=== PATIENT | male | born 1965 | race Two or more races ===

== ENCOUNTER 2024-05-16 14:30 | Outpatient (RCR) | payer MEDICAID, SELFPAY ==
--- NOTE | 2024-05-01 13:10 | PTNOTE_ITS ---
PT OP Initial Eval Patient Information Outpatient Physical Therapy Treatment Date: 05/01/24 Visit Reasons: RIGHT LEG ABSENCE Medical Diagnosis: Z89.512 Treatment Dx #1: Difficulty Walking Treatment Dx #2: Generalized Weakness Start of Care: 05/01/24 Date of Onset: 2021 Smoking Status Smoking Status: Never smoker Initial Assessment Subjective: Pt is a 58 y/o male reports of non-ambulatory ~ 2 years ago after his left leg amputation and CVA. Pt mention he finally received his prothesis and will like to start working towards being able to walk. Pt has limitation with walking, standing, chores, self care, balance, and performing recreational activities. Objective: Left LE AROM: all motions are WFL Left LE MMTs: grossly 3+/5 Right LE AROM: all motions are WFL Right LE MMTs: grossly 3+/5 BUE AROM: all motions are WFL BUE MMTs: grossly 3+/5 Assessment: Pt demonstrate general weakness, decondition, and decrease mobility s/p amputation leading to difficulty with ADLs. Pt will benefit from physical therapy to work on strength, mobility, and ambulation. Short Term and Transportation Sales Consultant Goals 1) Increase BLE AROM WNL in 12 wks to be able to perform chores 2) Increase core strength WFL in 12 wks to be able to perform recreational activities 3) Increase BLE MMTs grossly to 4-/5 in 12 wks to be able to walk with AD 4) Increase BUE MMTs grossly to 4/5 in 12 wks to be able to transfer independently 5) Indep with HEP Treatment Plan 1) Manual Therapy 2) Therapeutic Activities 3) Therapeutic Exercises 4) Balance Training 5) Gait Training Frequency and Duration: 2 x wk for 12 wks Certification Dates: 05/01/24 to 07/30/24 Procedure Charges OP PT Eval Mod Complex 30 minutes: Yes
--- NOTE | 2024-05-07 13:37 | PT.ODAYNRPT ---
PT Outpatient Daily Note OP Daily Note Outpatient Physical Therapy Treatment Date: 05/07/24 Visit Reasons: RIGHT LEG ABSENCE Subjective: Pt last put on his prosthesis ~ 1 week ago. Objective: Please see flow chart for list of ther ex performed Assessment: fatigue post PT session. Pt had difficulty balancing with sit-stand and will need further practice Plan: Continue with PT Length of Time (minutes) of Treatment: 30 Minutes Procedure Charges Therapeutic Exercise 30 minutes: Yes
--- NOTE | 2024-05-09 12:02 | PT.ODAYNRPT ---
PT Outpatient Daily Note OP Daily Note Outpatient Physical Therapy Treatment Date: 05/09/24 Visit Reasons: RIGHT LEG ABSENCE Subjective: Pt was very sore after last session. Pt had a good night sleep but denies of exercises being too difficult Objective: Please see flow chart for list of ther ex perfromed Assessment: improved with sit to stand form and able to stand longer with less support from therapist. Pt advised to continue to stand as HEP at home to improved standing balance Plan: Continue with PT Length of Time (minutes) of Treatment: 30 Minutes Procedure Charges Therapeutic Exercise 30 minutes: Yes
--- NOTE | 2024-05-14 15:28 | PT.ODAYNRPT ---
PT Outpatient Daily Note OP Daily Note Outpatient Physical Therapy Treatment Date: 05/14/24 Visit Reasons: RIGHT LEG ABSENCE Subjective: Pt very tired after last session. Pt mention he's been sore every time after therapy Objective: Please see flow chart for list of ther ex performed Assessment: progressing with standing tolerance. Pt fatigue post sit-stand and sci fit indicating decondition. Plan: Continue with PT Length of Time (minutes) of Treatment: 30 Minutes Procedure Charges Therapeutic Exercise 30 minutes: Yes
--- NOTE | 2024-05-16 15:32 | PT.ODAYNRPT ---
PT Outpatient Daily Note OP Daily Note Outpatient Physical Therapy Treatment Date: 05/16/24 Visit Reasons: RIGHT LEG ABSENCE Subjective: Pt reports he is feeling more tired than usual. Objective: Please see flow sheet fot ther ex list. Assessment: Pt performed 4x STS with Mod A, relies heavy on [employer] poor push off with R LE. Plan: Continue with POC. Length of Time (minutes) of Treatment: 30 Minutes Procedure Charges Therapeutic Exercise 30 minutes: Yes
== END 2024-05-28 23:59 | disposition home or self-care (01) ==
LOC: CPTX 14:30
PROVIDERS: PCP Physician Assistant; Referring Provider Physician Assistant; Visit Provider Physician Assistant
DX: R26.2 Difficulty in walking, not elsewhere classified (principal); R53.1 Weakness; R26.89 Other abnormalities of gait and mobility; Z89.512 Acquired absence of left leg below knee
CPT/HCPCS: 97110; 97162

== ENCOUNTER 2024-05-20 11:43 | Emergency (ER) | payer MEDICAID, SELFPAY ==
[2024-05-20 12:22] VITALS: BP 130/70; PULSE 66; RESP 16; TEMP 36.4; O2SAT 95; BMI 31.9
--- NOTE | 2024-05-20 12:28 | EDNOTE_ITS ---
ED Male Genitalurinary RME/HPI General Chief complaint: Urogenital-Male Stated complaint: NEED NEW CATHETER BAG Time Seen by Provider: 05/20/24 12:10 Arrival date/time: 05/20/24 11:43 58-year-old male with indwelling Joseph catheter presents the emergency department today stating that his Joseph catheter is leaking patient denies any other concerns Limitations: no limitations Related Data Home Medications ?Medication ?Instructions ?Recorded ?Confirmed atorvastatin 40 mg tablet 40 mg PO HS 01/27/24 01/27/24 bumetanide 1 mg tablet 1 mg PO BID 01/27/24 01/27/24 calcitriol 0.25 mcg capsule 0.25 mcg PO MWF 01/27/24 01/27/24 carvedilol 25 mg tablet 25 mg BID 01/27/24 01/27/24 clopidogrel 75 mg tablet 75 mg PO QPM 01/27/24 01/28/24 doxazosin 4 mg tablet 4 mg PO 1XD 01/27/24 01/27/24 finasteride 5 mg tablet 5 mg PO QDAY 01/27/24 01/27/24 oxybutynin chloride 5 mg 5 mg PO QDAY 01/27/24 01/27/24 tablet,extended release 24 hr aspirin 81 mg tablet,delayed 81 mg PO QDAY 01/28/24 01/28/24 release hydrochlorothiazide 25 mg tablet 25 mg PO QAM diuretic 01/28/24 01/28/24 losartan 25 mg tablet 25 mg PO QDAY 01/28/24 01/28/24 pantoprazole 40 mg tablet,delayed 40 mg PO QDAY 01/28/24 01/28/24 release insulin glargine 100 unit/mL (3 30 unit subcut HS 01/29/24 01/29/24 mL) subcutaneous pen (Lantus Solostar U-100 Insulin) insulin lispro 100 unit/mL 10 unit subcut QID 01/29/24 01/29/24 subcutaneous pen Previous Rx's ?Medication ?Instructions ?Recorded metformin 500 mg tablet 500 mg PO BIDWMEAL #30 tabs 01/30/24 nifedipine 30 mg tablet,extended 30 mg PO QDAY #30 tabs 01/31/24 release Allergies Allergy/AdvReac Type Severity Reaction Status Date / Time No Known Allergies Allergy Verified 05/20/24 11:44 Review of Systems Review of Systems Systems Reviewed: All systems reviewed, normal except as documented Constitutional Constitutional: Reports system reviewed and no additional complaints, except as documented, Denies fever(s) and Denies headache(s) Eyes Eyes: Reports system reviewed and no additional complaints, except as documented and Denies blurry vision ENT Ears, Nose, Mouth, and Throat: Reports system reviewed and no additional complaints, except as documented, Denies headache(s), Denies nasal congestion and Denies nasal discharge Cardiovascular Cardiovascular: Reports system reviewed and no additional complaints, except as documented, Denies chest pain and Denies dyspnea Respiratory Respiratory: Reports system reviewed and no additional complaints, except as documented, Denies chest congestion, Denies cough and Denies dyspnea Gastrointestinal Gastrointestinal: Reports system reviewed and no additional complaints, except as documented and Denies abdominal pain Genitourinary Genitourinary: Reports system reviewed and no additional complaints, except as documented and Reports other (Joseph catheter leaking) Integumentary/Breasts Skin/Breast: Reports system reviewed and no additional complaints, except as documented and Denies rash Neurologic Neurologic: Reports system reviewed and no additional complaints, except as documented, Reports as per HPI and Denies headache(s) Past Medical History Past Medical History CARDIAC: Positive Hypertension; Negative Congestive Heart Failure RESPIRATORY: Negative Chronic Obstructive Pulmonary Disease (COPD) GENITOURINARY: Positive Benign Prostatic Hyperplasia (chronic joseph); Negative Renal Disease ENDOCRINE: Positive Endocrine Disorders and Diabetes Mellitus Type 2; Negative Diabetes Mellitus Type 1 Surgical History SURGICAL: Positive Amputation Social History SMOKING STATUS: Never smoker ED Exam General Limitations: Present no limitations General appearance: Present alert and in no apparent distress Head Head exam: Present atraumatic, normocephalic and normal inspection Eye Eye exam: Present normal appearance, PERRL and EOMI; Absent conjunctival injection ENT ENT exam: Present normal exam, normal oropharynx and mucous membranes moist Neck Neck exam: Present normal inspection, full ROM and trachea midline Chest Chest inspection: Present normal inspection and symmetric chest wall rise Respiratory Respiratory exam: Present normal lung sounds bilaterally; Absent respiratory distress Cardiovascular Cardiovascular exam: Present regular rate, normal rhythm and normal heart sounds Abdominal Exam Abdominal exam: Present soft and normal bowel sounds; Absent distention, tenderness, guarding, rebound or rigidity Extremities Exam Extremities exam: Present normal inspection and full ROM Back Exam Back exam: Present normal inspection and full ROM Neurological Exam Neurological exam: Present alert, oriented X3 and CN II-XII intact Psychiatric Psychiatric exam: Present normal affect and normal mood Skin Skin exam: Present warm, dry, intact and normal color Course Quality Measures none Vital Signs Vital signs: Vital Signs Temperature 97.5 F 05/20/24 12:22 Pulse Rate 66 05/20/24 12:22 Respiratory Rate 16 05/20/24 12:22 Blood Pressure 130/70 05/20/24 12:22 Pulse Oximetry (%) 95 05/20/24 12:22 Oxygen Delivery Method Room Air 05/20/24 12:22 O2 saturation 95% room air within normal limits Urogenital - Male MDM Narrative MDM Narrative:: 58-year-old male with indwelling Joseph catheter presents the emergency department today stating that his Joseph catheter is leaking patient denies any other concerns On exam patient has Joseph catheter in place Patient's Joseph bag is leaking bag is replaced and patient discharged home Patient discharged home in no distress to follow-up with primary care doctor in the next 24 to 48 hours and for any worsening symptoms to return to the ER immediately Patient data External records reviewed:: [facility] previous records Clinical information provided by:: patient Social determinants that could affect healthcare access:: none Patient has the following chronic illnesses:: See history How is presenting disease/condition affected by chronic disease/condition?: caused by Evaluation data The following diagnostics were reviewed and interpreted by me:: other (specify) (N/A) Lab and/or radiology exams considered but not ordered:: Not indicated Interpretation Summary: N/A Medications / Prescriptions Medications or Prescriptions considered but not ordered:: No meds Medication administrations:: No meds Consultations Consultation(s) initiated? (list below): No Diagnosis Urogenital Male Differential Diagnosis: urinary tract infection, acute retention of urine and other (ChronicFoley catheter) Most likely diagnosis given after review of the tests above:: Joseph catheter problem Admission Indicated Admission indicated?: not indicated Admission Request Was there a request for admission?: No Disposition Plan Disposition Plan: Discharge Discharge Attestation Discharge Attestation: The patient and all family members were given an opportunity to ask questions and understood the discharge instructions. Discharge instructions specifically effects, indications for sooner follow up or return to the emergency department, and the expected course of current diagnosis. Patient condition: Stable Discharge Plan Plan Patient Disposition: HOME (Self Care) Disposition Comment: Stable Prescriptions/Referrals Prescriptions/Med Rec: No Action carvedilol 25 mg tablet 25 mg BID Patient Comments: TAKE ONE TABLET BY MOUTH TWICE DAILY WITH FOOD FOR BLOOD PRESSURE calcitriol 0.25 mcg capsule 0.25 mcg PO MWF Patient Comments: TAKE ONE CAPSULE BY MOUTH EVERY OTHER DAY doxazosin 4 mg tablet 4 mg PO 1XD Patient Comments: TAKE ONE TABLET BY MOUTH EVERY DAY FOR BLOOD PRESSURE bumetanide 1 mg tablet 1 mg PO BID Patient Comments: TAKE ONE TABLET BY MOUTH TWICE DAILY AT EIGHT IN THE MORNING AND 2 p.m in THE afternoon finasteride 5 mg tablet 5 mg PO QDAY Patient Comments: TAKE ONE TABLET BY MOUTH EVERY DAY FOR PROSTATE atorvastatin 40 mg tablet 40 mg PO HS Patient Comments: TAKE ONE TABLET BY MOUTH AT BEDTIME FOR CHOLESTEROL clopidogrel 75 mg tablet 75 mg PO QPM Patient Comments: TAKE ONE TABLET BY MOUTH EVERY EVENING FOR THE HEART oxybutynin chloride 5 mg tablet extended release 24hr 5 mg PO QDAY Patient Comments: TAKE ONE TABLET BY MOUTH EVERY DAY FOR OVERACTIVE BLADDER aspirin 81 mg tablet,delayed release (DR/EC) 81 mg PO QDAY Patient Comments: TAKE ONE TABLET BY MOUTH EVERY DAY FOR THE HEART FOR CIRCULATION pantoprazole 40 mg tablet,delayed release (DR/EC) 40 mg PO QDAY Patient Comments: TAKE ONE TABLET BY MOUTH EVERY DAY HEARTBURN hydrochlorothiazide 25 mg tablet 25 mg PO QAM Patient Comments: TAKE ONE TABLET BY MOUTH EVERY MORNING A DIURETIC losartan 25 mg tablet 25 mg PO QDAY insulin lispro 100 unit/mL Insulin Pen 10 unit SUBCUT QID Rx Instructions: 10-11 units insulin glargine [Lantus Solostar U-100 Insulin] 100 unit/mL (3 mL) Insulin Pen 30 unit SUBCUT HS metformin 500 mg tablet 500 mg PO BIDWMEAL Qty: 30 0RF nifedipine 30 mg tablet extended release 30 mg PO QDAY Qty: 30 0RF Problem List Clinical Impression: Joseph catheter problem Patient/Caregiver Discharge Instructions Additional Instructions: Please follow up with your primary care doctor in the next 24-48hrs for any worsening symptoms return here immediately Print Language: Yakut Stand Alone Forms: [employer] Award Info., Patient Portal Info Letter PA/PSYCHOLOGICAL ANTHROPOLOGIST Supervising Physician PA/PSYCHOLOGICAL ANTHROPOLOGIST Supervising Physician: Dr Miguel
== END 2024-05-20 12:31 | disposition home or self-care (01) ==
LOC: SERX 12:42
PROVIDERS: Emergency Provider Emergency Medicine; PCP Physician Assistant
DX: T83.018A Breakdown (mechanical) of other urinary catheter, initial encounter (principal); Y84.6 Urinary catheterization as the cause of abnormal reaction of the patient, or of later complication, without mention of misadventure at the time of the procedure
CPT/HCPCS: 99282

== ENCOUNTER 2024-06-24 13:30 | Outpatient (RCR) | payer MEDICAID, SELFPAY ==
--- NOTE | 2024-06-05 13:29 | PT.ODAYNRPT ---
PT Outpatient Daily Note OP Daily Note Outpatient Physical Therapy Treatment Date: 06/05/24 Visit Reasons: Right leg Abscence Subjective: No new complaints or concerns. Objective: Please see flow sheet for ther ex list. Assessment: Pt stood with Min/mod A first time and CGA second attempt. Pt stood for 30 seconds each time, verbal cues to correct standing posture, pt complied. Plan: Continue with POC. Length of Time (minutes) of Treatment: 30 Minutes Procedure Charges Therapeutic Exercise 30 minutes: Yes
--- NOTE | 2024-06-10 12:59 | PT.ODAYNRPT ---
PT Outpatient Daily Note OP Daily Note Outpatient Physical Therapy Treatment Date: 06/10/24 Visit Reasons: Right leg Abscence Subjective: Pt's been a little more tired than usual. Overall patient feels good. Objective: Please see flow chart for list of ther ex perfomed Assessment: fatigue PT session. Pt encouraged to continue exercises at home to help with conditioning. Plan: Continue with PT Length of Time (minutes) of Treatment: 30 Minutes Procedure Charges Therapeutic Exercise 30 minutes: Yes
--- NOTE | 2024-06-20 13:55 | PT.ODAYNRPT ---
PT Outpatient Daily Note OP Daily Note Outpatient Physical Therapy Treatment Date: 06/20/24 Visit Reasons: Right leg Abscence Subjective: No new complaints. Objective: Please see flow sheet for ther ex list. Assessment: Pt demonstrates poor standing tolerance, unable to stand fully erect. Plan: Continue with pOC. Length of Time (minutes) of Treatment: 30 Minutes Procedure Charges Therapeutic Exercise 30 minutes: Yes
--- NOTE | 2024-06-24 14:04 | PT.ODAYNRPT ---
PT Outpatient Daily Note OP Daily Note Outpatient Physical Therapy Treatment Date: 06/24/24 Visit Reasons: Right leg Abscence Subjective: Pt came in wearing prosthetic leg. No new complaints or concerns. Objective: Please see flow sheet for ther ex list. Assessment: Pt instructed on weight shifting in standing, pt fatigues but able to tolerate ~60 seconds. Plan: Continue with pOC. Length of Time (minutes) of Treatment: 30 Minutes Procedure Charges Therapeutic Exercise 30 minutes: Yes
== END 2024-06-28 23:59 | disposition home or self-care (01) ==
LOC: CPTX 13:30
PROVIDERS: PCP Physician Assistant; Referring Provider Physician Assistant; Visit Provider Physician Assistant
DX: R26.2 Difficulty in walking, not elsewhere classified (principal); R53.1 Weakness; R26.89 Other abnormalities of gait and mobility; Z89.512 Acquired absence of left leg below knee; Z86.73 Personal history of transient ischemic attack (TIA), and cerebral infarction without residual deficits
CPT/HCPCS: 97110

== ENCOUNTER 2024-07-04 13:30 | Outpatient (RCR) | payer MEDICAID, SELFPAY ==
--- NOTE | 2024-07-02 14:54 | PT.ODAYNRPT ---
PT Outpatient Daily Note OP Daily Note Outpatient Physical Therapy Treatment Date: 07/02/24 Visit Reasons: RT leg abscence Subjective: Pt's prothesis is getting fixed in [place]. The plastic broke and needed to be repair. Objective: Please see flow chart for list of ther ex perfomed Assessment: demonstrate improved sit to stand transition with less assist from therapist. Unable to attempt gait today since patient's prothesis is being repaired. Plan: Continue with PT Length of Time (minutes) of Treatment: 30 Minutes Procedure Charges Therapeutic Exercise 30 minutes: Yes
--- NOTE | 2024-07-04 14:04 | PT.ODAYNRPT ---
PT Outpatient Daily Note OP Daily Note Outpatient Physical Therapy Treatment Date: 07/04/24 Visit Reasons: RT leg abscence Subjective: Pt reports he is getting a new fitted orthosis, will likely be ready next week. Objective: Please see flow sheet for ther ex list., Assessment: Focus on LE strengthening to work towards pt being able to transfer with less difficulty. Plan: Continue with POC. Length of Time (minutes) of Treatment: 30 Minutes Procedure Charges Therapeutic Exercise 30 minutes: Yes
--- NOTE | 2024-07-10 13:20 | PT.ODS1RPT ---
PT OP Progress/Discharge Note Date of Service: 07/10/24 Progress Note/DC Note Progress Note/Discharge Note: DC Note Patient Information Visit Reasons: RT leg abscence Service Discharge Date: 07/10/24 Status Assessment: Pt has been seen for 11 visits (eval + 10 visits) inconsistently. Pt last treated on 07/04/24. At this time Pt will be d/c from care due to authorization. Pt did not meet set goals in therapy; thank you for your referrals
== END 2024-07-26 23:59 | disposition home or self-care (01) ==
LOC: CPTX 13:30
PROVIDERS: PCP Physician Assistant; Referring Provider Physician Assistant; Visit Provider Physician Assistant
DX: R26.2 Difficulty in walking, not elsewhere classified (principal); R53.1 Weakness; R26.89 Other abnormalities of gait and mobility; Z89.512 Acquired absence of left leg below knee
CPT/HCPCS: 97110

== ENCOUNTER 2024-07-20 12:22 | Emergency (ER) | payer MEDICAID, SELFPAY ==
[2024-07-20 12:51] VITALS: BP 152/70; PULSE 69; RESP 18; TEMP 36.9; O2SAT 98
[2024-07-20 12:52] VITALS: BMI 29.4
--- NOTE | 2024-07-20 13:07 | PD.EDADULT ---
ED General RME/HPI General Chief complaint: General Adult/Misc Complain Stated complaint: MORGAN CATHETER PROBLEM/LEAK/CHANGE Time Seen by Provider: 07/20/24 12:45 Arrival date/time: 07/20/24 12:22 RME / HPI RME / HPI narrative: 59-year-old male patient came in for evaluation regarding Morgan catheter bag malfunction. Patient noticed that the Morgan catheter bag is leaking. And he had no extra bag. Patient is having chronic Morgan catheter, last changed few weeks ago. Denies any complaints in the Morgan catheter. Related Data Home Medications ?Medication ?Instructions ?Recorded ?Confirmed atorvastatin 40 mg tablet 40 mg PO HS 01/27/24 01/27/24 bumetanide 1 mg tablet 1 mg PO BID 01/27/24 01/27/24 calcitriol 0.25 mcg capsule 0.25 mcg PO MWF 01/27/24 01/27/24 carvedilol 25 mg tablet 25 mg BID 01/27/24 01/27/24 clopidogrel 75 mg tablet 75 mg PO QPM 01/27/24 01/28/24 doxazosin 4 mg tablet 4 mg PO 1XD 01/27/24 01/27/24 finasteride 5 mg tablet 5 mg PO QDAY 01/27/24 01/27/24 oxybutynin chloride 5 mg 5 mg PO QDAY 01/27/24 01/27/24 tablet,extended release 24 hr aspirin 81 mg tablet,delayed 81 mg PO QDAY 01/28/24 01/28/24 release hydrochlorothiazide 25 mg tablet 25 mg PO QAM diuretic 01/28/24 01/28/24 losartan 25 mg tablet 25 mg PO QDAY 01/28/24 01/28/24 pantoprazole 40 mg tablet,delayed 40 mg PO QDAY 01/28/24 01/28/24 release insulin glargine 100 unit/mL (3 30 unit subcut HS 01/29/24 01/29/24 mL) subcutaneous pen (Lantus Solostar U-100 Insulin) insulin lispro 100 unit/mL 10 unit subcut QID 01/29/24 01/29/24 subcutaneous pen Previous Rx's ?Medication ?Instructions ?Recorded metformin 500 mg tablet 500 mg PO BIDWMEAL #30 tabs 01/30/24 nifedipine 30 mg tablet,extended 30 mg PO QDAY #30 tabs 01/31/24 release Allergies Allergy/AdvReac Type Severity Reaction Status Date / Time No Known Allergies Allergy Verified 07/20/24 12:23 Review of Systems Review of Systems Narrative Review of Systems: Review of system reviewed and within normal limits except mentioned in HPI ED Exam Narrative Physical exam: VITAL SIGNS: Reviewed. GENERAL APPEARANCE: Alert and interactive, follows commands, no acute distress, HEAD AND FACE: Non-traumatic. ENT: PERRL, pink conjunctivitis, eyelid no trauma, Mucous membrane moist. NECK: Supple, nontender, no nuchal rigidity. CHEST: No tenderness, no crepitus, no paradoxical movement, no retractions. LUNGS: Clear, well ventilated, symmetric, no rales, no wheezing, no ronchi, no stridor, good breath sounds bilaterally. HEART: Regular rate, regular rhythm, no murmur, no gallops. ABDOMEN: Soft, positive bowel sounds, nondistended, no guarding, nontender, no rebound, no masses, RECTAL: Deferred. GENITAL: Morgan catheter intact, Morgan catheter bag with leaking NEUROLOGICAL: Gross motor function intact sensory function intact, Appropriate for age. MUSCULOSKELETAL: low back nontender, full range of motion. EXTREMITIES: Status post below-knee amputation, nontender, full range of motion. SKIN: Color pink, dry, no rash, no lacerations, no abrasions, no contusions. LYMPHATICS: Deferred. Course Quality Measures none Vital Signs Vital signs: Vital Signs Temperature 98.4 F 07/20/24 12:51 Pulse Rate 69 07/20/24 12:51 Respiratory Rate 18 07/20/24 12:51 Blood Pressure 152/70 H 07/20/24 12:51 Pulse Oximetry (%) 98 07/20/24 12:51 Oxygen Delivery Method Room Air 07/20/24 12:51 [facility] Patient data External records reviewed:: None Clinical information provided by:: none Social determinants that could affect healthcare access:: none Patient has the following chronic illnesses:: None How is presenting disease/condition affected by chronic disease/condition?: no chronic disease Evaluation data The following diagnostics were reviewed and interpreted by me:: other (specify) Lab and/or radiology exams considered but not ordered:: None Interpretation Summary: None Medications Medications considered but not ordered:: None Medication administrations:: None Consultations Consultation(s) initiated? (list below): No Diagnosis Differential Diagnosis ED Complaint MDM: Morgan catheter malfunction, Morgan bag malfunction Most likely diagnosis given after review of the tests above:: Morgan bag malfunction Admission Indicated Admission indicated?: not indicated Explain why admission is indicated or not indicated:: None Admission Request Was there a request for admission?: No Disposition Plan Disposition Plan: Discharge Discharge Attestation Discharge Attestation: The patient was given an opportunity to ask questions and understood the discharge instructions. Discharge instructions specifically effects, indications for sooner follow up or return to the emergency department, and the expected course of current diagnosis. Patient condition: Stable Medical Decision Making MDM Narrative MDM Narrative: 59-year-old male patient came in for evaluation regarding Morgan catheter bag malfunction. Patient noticed that the Morgan catheter bag is leaking. And he had no extra bag. Patient is having chronic Morgan catheter, last changed few weeks ago. Denies any complaints in the Morgan catheter. Patient was given a Morgan catheter bag. Patient appears nontoxic and hemodynamically stable. Patient discharged home and instructed to follow-up with primary care provider in 24 to 48 hours. Instructed to return to the emergency department immediately if worsening of symptoms Differential Diagnosis Differential Diagnosis: Morgan catheter malfunction, Morgan bag malfunction Discharge Plan Plan Patient Disposition: HOME (Self Care) Disposition Comment: Stable Prescriptions/Referrals Prescriptions/Med Rec: No Action carvedilol 25 mg tablet 25 mg BID Patient Comments: TAKE ONE TABLET BY MOUTH TWICE DAILY WITH FOOD FOR BLOOD PRESSURE calcitriol 0.25 mcg capsule 0.25 mcg PO MWF Patient Comments: TAKE ONE CAPSULE BY MOUTH EVERY OTHER DAY doxazosin 4 mg tablet 4 mg PO 1XD Patient Comments: TAKE ONE TABLET BY MOUTH EVERY DAY FOR BLOOD PRESSURE bumetanide 1 mg tablet 1 mg PO BID Patient Comments: TAKE ONE TABLET BY MOUTH TWICE DAILY AT EIGHT IN THE MORNING AND 2 p.m in THE afternoon finasteride 5 mg tablet 5 mg PO QDAY Patient Comments: TAKE ONE TABLET BY MOUTH EVERY DAY FOR PROSTATE atorvastatin 40 mg tablet 40 mg PO HS Patient Comments: TAKE ONE TABLET BY MOUTH AT BEDTIME FOR CHOLESTEROL clopidogrel 75 mg tablet 75 mg PO QPM Patient Comments: TAKE ONE TABLET BY MOUTH EVERY EVENING FOR THE HEART oxybutynin chloride 5 mg tablet extended release 24hr 5 mg PO QDAY Patient Comments: TAKE ONE TABLET BY MOUTH EVERY DAY FOR OVERACTIVE BLADDER aspirin 81 mg tablet,delayed release (DR/EC) 81 mg PO QDAY Patient Comments: TAKE ONE TABLET BY MOUTH EVERY DAY FOR THE HEART FOR CIRCULATION pantoprazole 40 mg tablet,delayed release (DR/EC) 40 mg PO QDAY Patient Comments: TAKE ONE TABLET BY MOUTH EVERY DAY HEARTBURN hydrochlorothiazide 25 mg tablet 25 mg PO QAM Patient Comments: TAKE ONE TABLET BY MOUTH EVERY MORNING A DIURETIC losartan 25 mg tablet 25 mg PO QDAY insulin lispro 100 unit/mL Insulin Pen 10 unit SUBCUT QID Rx Instructions: 10-11 units insulin glargine [Lantus Solostar U-100 Insulin] 100 unit/mL (3 mL) Insulin Pen 30 unit SUBCUT HS metformin 500 mg tablet 500 mg PO BIDWMEAL Qty: 30 0RF nifedipine 30 mg tablet extended release 30 mg PO QDAY Qty: 30 0RF Problem List Clinical Impression: Malfunction of Morgan catheter Patient/Caregiver Discharge Instructions Discharge Activity: activity as tolerated Education Materials: ED Morgan Catheter, Care Additional Instructions: Thank you for the opportunity for serving you today. You are stable for discharged . You are advised to: Follow-up with your PCP in 1 to 2 days Return to ED for worsening of symptoms Increase oral fluids Print Language: French Stand Alone Forms: [employer] Award Info., Patient Portal Info Letter
== END 2024-07-20 13:21 | disposition home or self-care (01) ==
LOC: SERX 13:14
PROVIDERS: Emergency Provider Emergency Medicine
DX: T83.091A Other mechanical complication of indwelling urethral catheter, initial encounter (principal); Z89.519 Acquired absence of unspecified leg below knee; Y73.2 Prosthetic and other implants, materials and accessory gastroenterology and urology devices associated with adverse incidents; Y84.6 Urinary catheterization as the cause of abnormal reaction of the patient, or of later complication, without mention of misadventure at the time of the procedure
CPT/HCPCS: 99282

== ENCOUNTER 2024-09-26 10:52 | Emergency (ER) | payer MEDICAID, SELFPAY ==
[2024-09-26 10:53] VITALS: BMI 32.1
[2024-09-26 11:40] VITALS: BP 132/82; PULSE 75; RESP 18; TEMP 37.2; O2SAT 97
--- NOTE | 2024-09-26 11:43 | PD.EDADULT ---
ED General RME/HPI General Chief complaint: General Adult/Misc Complain Stated complaint: WANTS CATH CHANGE Time Seen by Provider: 09/26/24 11:25 Source: patient Arrival date/time: 09/26/24 10:52 59-year-old male with a history of hyperlipidemia, BPH, hypertension, type 2 diabetes presents to the emergency room with a chief complaint of wanting his catheter changed. Patient states the last time he had a catheter changed was 4 months ago. Patient states he is seen by your urologist and he will have prostate surgery soon. Patient denies any other complaints and states he just wants his catheter changed. Mode of arrival: ambulatory Limitations: no limitations Related Data Home Medications ?Medication ?Instructions ?Recorded ?Confirmed atorvastatin 40 mg tablet 40 mg PO HS 01/27/24 01/27/24 bumetanide 1 mg tablet 1 mg PO BID 01/27/24 01/27/24 calcitriol 0.25 mcg capsule 0.25 mcg PO MWF 01/27/24 01/27/24 carvedilol 25 mg tablet 25 mg BID 01/27/24 01/27/24 clopidogrel 75 mg tablet 75 mg PO QPM 01/27/24 01/28/24 doxazosin 4 mg tablet 4 mg PO 1XD 01/27/24 01/27/24 finasteride 5 mg tablet 5 mg PO QDAY 01/27/24 01/27/24 oxybutynin chloride 5 mg 5 mg PO QDAY 01/27/24 01/27/24 tablet,extended release 24 hr aspirin 81 mg tablet,delayed 81 mg PO QDAY 01/28/24 01/28/24 release hydrochlorothiazide 25 mg tablet 25 mg PO QAM diuretic 01/28/24 01/28/24 losartan 25 mg tablet 25 mg PO QDAY 01/28/24 01/28/24 pantoprazole 40 mg tablet,delayed 40 mg PO QDAY 01/28/24 01/28/24 release insulin glargine 100 unit/mL (3 30 unit subcut HS 01/29/24 01/29/24 mL) subcutaneous pen (Lantus Solostar U-100 Insulin) insulin lispro 100 unit/mL 10 unit subcut QID 01/29/24 01/29/24 subcutaneous pen Previous Rx's ?Medication ?Instructions ?Recorded metformin 500 mg tablet 500 mg PO BIDWMEAL #30 tabs 01/30/24 nifedipine 30 mg tablet,extended 30 mg PO QDAY #30 tabs 01/31/24 release Allergies Allergy/AdvReac Type Severity Reaction Status Date / Time No Known Allergies Allergy Verified 09/26/24 10:54 Review of Systems Review of Systems Systems Reviewed: All systems reviewed, normal except as documented Constitutional Constitutional: Reports system reviewed and no additional complaints, except as documented, Denies fatigue, Denies fever(s), Denies headache(s) and Denies weakness Eyes Eyes: Reports system reviewed and no additional complaints, except as documented, Denies blurry vision and Denies change in vision ENT Ears, Nose, Mouth, and Throat: Reports system reviewed and no additional complaints, except as documented, Denies otalgia, Denies headache(s), Denies nasal congestion, Denies throat swelling and Denies vertigo Cardiovascular Cardiovascular: Reports system reviewed and no additional complaints, except as documented, Denies chest pain, Denies dyspnea and Denies dyspnea on exertion Respiratory Respiratory: Reports system reviewed and no additional complaints, except as documented, Denies chest congestion, Denies cough, Denies dyspnea, Denies dyspnea on exertion and Denies wheezing Gastrointestinal Gastrointestinal: Reports system reviewed and no additional complaints, except as documented, Denies abdominal pain, Denies cramping, Denies nausea and Denies vomiting Genitourinary Genitourinary: Reports system reviewed and no additional complaints, except as documented, Denies dysuria and Denies hematuria Musculoskeletal Musculoskeletal: Reports system reviewed and no additional complaints, except as documented and Denies back pain Integumentary/Breasts Skin/Breast: Reports system reviewed and no additional complaints, except as documented and Denies wounds Neurologic Neurologic: Reports system reviewed and no additional complaints, except as documented, Denies confusion, Denies headache(s), Denies lack of coordination, Denies vertigo and Denies weakness Psychiatric Psychiatric: Reports system reviewed and no additional complaints, except as documented, Denies anxiety, Denies confusion, Denies depression, Denies paranoia, Denies suicidal ideation and Denies tactile hallucinations Endocrine Endocrine: Reports system reviewed and no additional complaints, except as documented and Denies fatigue Hematologic/Lymphatic Hematologic/Lymphatic: Reports system reviewed and no additional complaints, except as documented and Denies lymphadenopathy Allergic/Immunologic Allergic/Immunologic: Reports system reviewed and no additional complaints, except as documented, Denies throat swelling, Denies urticaria and Denies wheezing Past Medical History Past Medical History CARDIAC: Positive Hypertension; Negative Congestive Heart Failure RESPIRATORY: Negative Chronic Obstructive Pulmonary Disease (COPD) GENITOURINARY: Positive Benign Prostatic Hyperplasia (chronic joseph); Negative Renal Disease ENDOCRINE: Positive Endocrine Disorders and Diabetes Mellitus Type 2; Negative Diabetes Mellitus Type 1 Surgical History SURGICAL: Positive Amputation Social History SMOKING STATUS: Never smoker ED Exam General Limitations: Present no limitations General appearance: Present alert and in no apparent distress Head Head exam: Present atraumatic Eye Eye exam: Present normal appearance, PERRL and EOMI ENT ENT exam: Present normal exam, normal oropharynx and mucous membranes moist Neck Neck exam: Present normal inspection, full ROM and trachea midline Chest Chest inspection: Present normal inspection and symmetric chest wall rise Respiratory Respiratory exam: Present normal lung sounds bilaterally Cardiovascular Cardiovascular exam: Present regular rate, normal rhythm and normal heart sounds Abdominal Exam Abdominal exam: Present soft and normal bowel sounds Extremities Exam Extremities exam: Present normal inspection and full ROM Back Exam Back exam: Present normal inspection and full ROM Neurological Exam Neurological exam: Present alert, oriented X3 and CN II-XII intact Psychiatric Psychiatric exam: Present normal affect and normal mood Skin Skin exam: Present warm, dry, intact and normal color Course Quality Measures none Orders Category Date Time Status Joseph [Urinary Catheter] QS Care 09/26/24 11:43 Completed Joseph to Leg Bag Routine Care 09/26/24 11:43 Ordered Urinary Catheter, Remove ONCE Care 09/26/24 11:43 Completed Vital Signs Vital signs: Vital Signs Temperature 99.0 F 09/26/24 11:40 Pulse Rate 75 09/26/24 11:40 Respiratory Rate 18 09/26/24 11:40 Blood Pressure 132/82 H 09/26/24 11:40 Pulse Oximetry (%) 97 09/26/24 11:40 Oxygen Delivery Method Room Air 09/26/24 11:40 Discharge Plan Plan Patient Disposition: HOME (Self Care) Discharge Disposition comment: Stable Prescriptions/Referrals Prescriptions/Med Rec: No Action carvedilol 25 mg tablet 25 mg BID Patient Comments: TAKE ONE TABLET BY MOUTH TWICE DAILY WITH FOOD FOR BLOOD PRESSURE calcitriol 0.25 mcg capsule 0.25 mcg PO MWF Patient Comments: TAKE ONE CAPSULE BY MOUTH EVERY OTHER DAY doxazosin 4 mg tablet 4 mg PO 1XD Patient Comments: TAKE ONE TABLET BY MOUTH EVERY DAY FOR BLOOD PRESSURE bumetanide 1 mg tablet 1 mg PO BID Patient Comments: TAKE ONE TABLET BY MOUTH TWICE DAILY AT EIGHT IN THE MORNING AND 2 p.m in THE afternoon finasteride 5 mg tablet 5 mg PO QDAY Patient Comments: TAKE ONE TABLET BY MOUTH EVERY DAY FOR PROSTATE atorvastatin 40 mg tablet 40 mg PO HS Patient Comments: TAKE ONE TABLET BY MOUTH AT BEDTIME FOR CHOLESTEROL clopidogrel 75 mg tablet 75 mg PO QPM Patient Comments: TAKE ONE TABLET BY MOUTH EVERY EVENING FOR THE HEART oxybutynin chloride 5 mg tablet extended release 24hr 5 mg PO QDAY Patient Comments: TAKE ONE TABLET BY MOUTH EVERY DAY FOR OVERACTIVE BLADDER aspirin 81 mg tablet,delayed release (DR/EC) 81 mg PO QDAY Patient Comments: TAKE ONE TABLET BY MOUTH EVERY DAY FOR THE HEART FOR CIRCULATION pantoprazole 40 mg tablet,delayed release (DR/EC) 40 mg PO QDAY Patient Comments: TAKE ONE TABLET BY MOUTH EVERY DAY HEARTBURN hydrochlorothiazide 25 mg tablet 25 mg PO QAM Patient Comments: TAKE ONE TABLET BY MOUTH EVERY MORNING A DIURETIC losartan 25 mg tablet 25 mg PO QDAY insulin lispro 100 unit/mL Insulin Pen 10 unit SUBCUT QID Rx Instructions: 10-11 units insulin glargine [Lantus Solostar U-100 Insulin] 100 unit/mL (3 mL) Insulin Pen 30 unit SUBCUT HS metformin 500 mg tablet 500 mg PO BIDWMEAL Qty: 30 0RF nifedipine 30 mg tablet extended release 30 mg PO QDAY Qty: 30 0RF Referrals: Lalitha Berrios PA-C [Primary Care Provider] - In 1 week Problem List Clinical Impression: Encounter for Joseph catheter replacement Patient/Caregiver Discharge Instructions Additional Instructions: Please follow-up with your primary care provider in the next 24 to 48 hours. Please keep your appointment to see your urologist. Your catheter was changed and replaced. For any evidence of worsening signs or symptoms return to the emergency room immediately Print Language: Wolof Stand Alone Forms: [employer] Award Info., Patient Portal Info Letter PA/MAGALYS Supervising Physician LUIS ANTONIO/MAGALYS Supervising Physician: dr. Sutherland MDM Narrative MDM hospital course (for use when minimal MDM required): 9-year-old male with a history of hyperlipidemia, BPH, hypertension, type 2 diabetes presents to the emergency room with a chief complaint of wanting his catheter changed. Patient states the last time he had a catheter changed was 4 months ago. Patient states he is seen by your urologist and he will have prostate surgery soon. Patient denies any other complaints and states he just wants his catheter changed. Catheter was replaced patient was discharged Clinical Information Provided by: patient Medical Records reviewed [facility] and EMS Meds/Rx considered, not ordered None Labs/Rad/Tests considered, not ordered None Chronic Illness/Social Conditions which may negatively complicate care or outcome(s)-explain: None or not applicable EKG EKG not done Labs Labs: none Imaging Imaging interpretation: none or see narrative above Medication Administration(s) none Diagnosis Differential Diagnosis ED Complaint MDM: Encounter for replacement of Joseph catheter/UTI Diagnoses ruled out and/or further discussions: Urinary tract infection
== END 2024-09-26 13:36 | disposition home or self-care (01) ==
PROVIDERS: Emergency Provider Emergency Medicine; PCP Physician Assistant
DX: Z46.6 Encounter for fitting and adjustment of urinary device (principal); N40.0 Benign prostatic hyperplasia without lower urinary tract symptoms
CPT/HCPCS: 51702; 99283

== ENCOUNTER 2025-03-08 13:23 | Emergency (ER) | payer MEDICAID, SELFPAY ==
[2025-03-08 13:46] VITALS: BP 179/93; PULSE 65; RESP 18; TEMP 36.7; O2SAT 95
--- NOTE | 2025-03-08 14:46 | PD.EDMALE ---
ED Male Genitalurinary RME/HPI General Chief complaint: Urogenital-Male Stated complaint: Catheter needs to be changed, bleeding Time Seen by Provider: 03/08/25 13:47 Source: patient Arrival date/time: 03/08/25 13:23 RME / HPI RME / HPI Narrative: Patient with a past medical history of BPH requesting a catheter changes his catheter has been in there for 2 months. Denies fever abdominal pain, flank pain, vomiting. He noted scant blood in his urine for a few seconds however it self resolved otherwise his urines been normal. Related Data Home Medications ?Medication ?Instructions ?Recorded ?Confirmed atorvastatin 40 mg tablet 40 mg PO HS 01/27/24 01/27/24 bumetanide 1 mg tablet 1 mg PO BID 01/27/24 01/27/24 calcitriol 0.25 mcg capsule 0.25 mcg PO MWF 01/27/24 01/27/24 carvedilol 25 mg tablet 25 mg BID 01/27/24 01/27/24 clopidogrel 75 mg tablet 75 mg PO QPM 01/27/24 01/28/24 doxazosin 4 mg tablet 4 mg PO 1XD 01/27/24 01/27/24 finasteride 5 mg tablet 5 mg PO QDAY 01/27/24 01/27/24 oxybutynin chloride 5 mg 5 mg PO QDAY 01/27/24 01/27/24 tablet,extended release 24 hr aspirin 81 mg tablet,delayed 81 mg PO QDAY 01/28/24 01/28/24 release hydrochlorothiazide 25 mg tablet 25 mg PO QAM diuretic 01/28/24 01/28/24 losartan 25 mg tablet 25 mg PO QDAY 01/28/24 01/28/24 pantoprazole 40 mg tablet,delayed 40 mg PO QDAY 01/28/24 01/28/24 release insulin glargine 100 unit/mL (3 30 unit subcut HS 01/29/24 01/29/24 mL) subcutaneous pen (Lantus Solostar U-100 Insulin) insulin lispro 100 unit/mL 10 unit subcut QID 01/29/24 01/29/24 subcutaneous pen Previous Rx's ?Medication ?Instructions ?Recorded metformin 500 mg tablet 500 mg PO BIDWMEAL #30 tabs 01/30/24 nifedipine 30 mg tablet,extended 30 mg PO QDAY #30 tabs 01/31/24 release Allergies Allergy/AdvReac Type Severity Reaction Status Date / Time No Known Allergies Allergy Verified 03/08/25 13:26 ED Exam Narrative Physical exam: Constitutional: Vital Signs Reviewed. Well appearing. No acute distress. Not toxic appearing. Head: Normocephalic, atraumatic. Eyes: Conjunctiva clear. ENT: Mucous membranes moist. Neck: Trachea midline. Normal range of motion. No nuchal rigidity. Respiratory: Normal effort. No respiratory distress or accessory muscle use. Abdomen soft nontender to palpation and no CVA tenderness to palpation bilaterally Neuro: Alert and oriented. Speech normal. In wheelchair. 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 Mckeon catheter in place and draining yellow urine Psych: Pleasant. Normal affect. Cooperative. Course Course Course Narrative: MDM Risk and benefits of lab work discussed with patient who declined to have a urine culture, urine analysis, POC glucose, CMP Catheter replaced and draining yellow urine Patient aware of necessity to follow-up closely with his urologist for continued evaluation and treatment of his BPH as well as strict ER return precautions advised for any fever or vomit or irritation in his urethra or recurrence of hematuria Quality Measures none Reevaluation(s) Reevaluation #1: At the time of reassessment, the patient remains alert and oriented ?3 with GCS 15. Vitals are normal, pain is controlled, and the patient is tolerating oral intake without nausea or vomiting. The patient is agreeable to discharge and verbalizes understanding of the diagnosis, studies, treatment plan, medications (including side effects/precautions), and strict ER return precautions as discussed in the ED. All concerns were addressed, and the patient is comfortable with the plan. Vital Signs Vital signs: Vital Signs Temperature 98.1 F 03/08/25 13:46 Pulse Rate 65 03/08/25 13:46 Respiratory Rate 18 03/08/25 13:46 Blood Pressure 179/93 H 03/08/25 13:46 Pulse Oximetry (%) 95 03/08/25 13:46 Oxygen Delivery Method Room Air 03/08/25 13:46 Urogenital - Male MDM Narrative MDM Narrative:: MDM 59-year-old male with past ministry of hypertension, diabetes, BPH presents to the ER complaining of scant blood noted in his Mckeon bag and requesting Mckeon catheter change as he has had it in there for almost 2 months. Denies vomiting, fever. Patient data External records reviewed:: None Clinical information provided by:: none Social determinants that could affect healthcare access:: none Patient has the following chronic illnesses:: As noted How is presenting disease/condition affected by chronic disease/condition?: exacerbated by Evaluation data The following diagnostics were reviewed and interpreted by me:: other (specify) Lab and/or radiology exams considered but not ordered:: Labs and radiology considered, but not ordered as they were not clinically indicated at this time. I offered patient additional lab work to exclude acute renal failure. Interpretation Summary: As noted Medications / Prescriptions Medications or Prescriptions considered but not ordered:: I considered prescription management (both outpatient prescriptions AND drug treatment in the ER) and decided that this was necessary and was prescribed as charted. Medication administrations:: As noted Consultations Consultation(s) initiated? (list below): No Diagnosis Urogenital Male Differential Diagnosis: urinary tract infection, prostatitis and acute retention of urine Most likely diagnosis given after review of the tests above:: As noted Admission Indicated Admission indicated?: not indicated Admission Request Was there a request for admission?: No Disposition Plan Disposition Plan: Discharge Discharge Attestation Discharge Attestation: The patient and all family members were given an opportunity to ask questions and understood the discharge instructions. Discharge instructions specifically effects, indications for sooner follow up or return to the emergency department, and the expected course of current diagnosis. Patient condition: Stable Discharge Plan Plan Patient Disposition: HOME (Self Care) Patient condition on transfer: Stable Prescriptions/Referrals Prescriptions/Med Rec: No Action carvedilol 25 mg tablet 25 mg BID Patient Comments: TAKE ONE TABLET BY MOUTH TWICE DAILY WITH FOOD FOR BLOOD PRESSURE calcitriol 0.25 mcg capsule 0.25 mcg PO MWF Patient Comments: TAKE ONE CAPSULE BY MOUTH EVERY OTHER DAY doxazosin 4 mg tablet 4 mg PO 1XD Patient Comments: TAKE ONE TABLET BY MOUTH EVERY DAY FOR BLOOD PRESSURE bumetanide 1 mg tablet 1 mg PO BID Patient Comments: TAKE ONE TABLET BY MOUTH TWICE DAILY AT EIGHT IN THE MORNING AND 2 p.m in THE afternoon finasteride 5 mg tablet 5 mg PO QDAY Patient Comments: TAKE ONE TABLET BY MOUTH EVERY DAY FOR PROSTATE atorvastatin 40 mg tablet 40 mg PO HS Patient Comments: TAKE ONE TABLET BY MOUTH AT BEDTIME FOR CHOLESTEROL clopidogrel 75 mg tablet 75 mg PO QPM Patient Comments: TAKE ONE TABLET BY MOUTH EVERY EVENING FOR THE HEART oxybutynin chloride 5 mg tablet extended release 24hr 5 mg PO QDAY Patient Comments: TAKE ONE TABLET BY MOUTH EVERY DAY FOR OVERACTIVE BLADDER aspirin 81 mg tablet,delayed release (DR/EC) 81 mg PO QDAY Patient Comments: TAKE ONE TABLET BY MOUTH EVERY DAY FOR THE HEART FOR CIRCULATION pantoprazole 40 mg tablet,delayed release (DR/EC) 40 mg PO QDAY Patient Comments: TAKE ONE TABLET BY MOUTH EVERY DAY HEARTBURN hydrochlorothiazide 25 mg tablet 25 mg PO QAM Patient Comments: TAKE ONE TABLET BY MOUTH EVERY MORNING A DIURETIC losartan 25 mg tablet 25 mg PO QDAY insulin lispro 100 unit/mL Insulin Pen 10 unit SUBCUT QID Rx Instructions: 10-11 units insulin glargine [Lantus Solostar U-100 Insulin] 100 unit/mL (3 mL) Insulin Pen 30 unit SUBCUT HS metformin 500 mg tablet 500 mg PO BIDWMEAL Qty: 30 0RF nifedipine 30 mg tablet extended release 30 mg PO QDAY Qty: 30 0RF Referrals: Lalitha Berrios PA-C [Primary Care Provider] - In 1 week Problem List Clinical Impression: Encounter for Mckeon catheter fitting and adjustment Patient/Caregiver Discharge Instructions Education Materials: ED Mckeon Catheter, Care Additional Instructions: Follow up with your primary medical doctor and your urologist within 24 hours. Return to the Emergency Room immediately for any new, worsening, continuing symptoms or any concerns at all. Return to the Emergency Room within 24 hours if you are unable to follow up with your primary medical doctor and your urologist within 24 hours. Print Language: [place] Stand Alone Forms: Nelly Award Info., Patient Portal Info Letter LUIS ANTONIO/MAGALYS Supervising Physician MARANDA Supervising Physician: Dr. Gilbert
--- NOTE | 2025-03-08 15:03 | PC.NURSE ---
MORGAN CATHETER REPLACED PER PROVIDERS ORDER, DRAINING YELLOW URINE, LEG BAG WAS PLACED. NO C/O PAIN OR DISCOMFORT AT THIS TIME.
== END 2025-03-08 16:32 | disposition home or self-care (01) ==
PROVIDERS: Emergency Provider Emergency Medicine; PCP Physician Assistant
DX: Z46.6 Encounter for fitting and adjustment of urinary device (principal)
CPT/HCPCS: 99281

== ENCOUNTER 2025-04-30 18:07 | Emergency (ER) | payer MEDICAID, SELFPAY ==
[2025-04-30 19:25] VITALS: BP 167/84; PULSE 68; RESP 20; TEMP 36.6; O2SAT 96
--- NOTE | 2025-04-30 19:56 | PD.EDMALE ---
ED Male Genitalurinary RME/HPI General Chief complaint: Urogenital-Male Stated complaint: NEEDS JOSEPH CHANGED Time Seen by Provider: 04/30/25 19:20 Arrival date/time: 04/30/25 18:07 59-year-old male with a chronic indwelling Joseph catheter reports with complaints of need for changing the catheter. Patient denies fever chills abdominal pain hematuria or clogged Joseph. Patient states that the catheter has been present for 2 months he has not noticed any penile discharge. Limitations: no limitations Related Data Home Medications ?Medication ?Instructions ?Recorded ?Confirmed atorvastatin 40 mg tablet 40 mg PO HS 01/27/24 01/27/24 bumetanide 1 mg tablet 1 mg PO BID 01/27/24 01/27/24 calcitriol 0.25 mcg capsule 0.25 mcg PO MWF 01/27/24 01/27/24 carvedilol 25 mg tablet 25 mg BID 01/27/24 01/27/24 clopidogrel 75 mg tablet 75 mg PO QPM 01/27/24 01/28/24 doxazosin 4 mg tablet 4 mg PO 1XD 01/27/24 01/27/24 finasteride 5 mg tablet 5 mg PO QDAY 01/27/24 01/27/24 oxybutynin chloride 5 mg 5 mg PO QDAY 01/27/24 01/27/24 tablet,extended release 24 hr aspirin 81 mg tablet,delayed 81 mg PO QDAY 01/28/24 01/28/24 release hydrochlorothiazide 25 mg tablet 25 mg PO QAM diuretic 01/28/24 01/28/24 losartan 25 mg tablet 25 mg PO QDAY 01/28/24 01/28/24 pantoprazole 40 mg tablet,delayed 40 mg PO QDAY 01/28/24 01/28/24 release insulin glargine 100 unit/mL (3 30 unit subcut HS 01/29/24 01/29/24 mL) subcutaneous pen (Lantus Solostar U-100 Insulin) insulin lispro 100 unit/mL 10 unit subcut QID 01/29/24 01/29/24 subcutaneous pen Previous Rx's ?Medication ?Instructions ?Recorded metformin 500 mg tablet 500 mg PO BIDWMEAL #30 tabs 01/30/24 nifedipine 30 mg tablet,extended 30 mg PO QDAY #30 tabs 01/31/24 release Allergies Allergy/AdvReac Type Severity Reaction Status Date / Time No Known Allergies Allergy Verified 04/30/25 18:09 Review of Systems Constitutional Constitutional: Denies chills and Denies fever(s) Genitourinary Genitourinary: Denies dysuria, Denies hematuria and Reports other (Indwelling Joseph catheter) Musculoskeletal Musculoskeletal: Denies back pain and Denies myalgias Integumentary/Breasts Skin/Breast: Denies erythema and Denies rash Past Medical History Past Medical History CARDIAC: Positive Hypertension; Negative Congestive Heart Failure RESPIRATORY: Negative Chronic Obstructive Pulmonary Disease (COPD) GENITOURINARY: Positive Benign Prostatic Hyperplasia (chronic joseph); Negative Renal Disease ENDOCRINE: Positive Endocrine Disorders and Diabetes Mellitus Type 2; Negative Diabetes Mellitus Type 1 Surgical History SURGICAL: Positive Amputation Social History SMOKING STATUS: Never smoker ED Exam General Limitations: Present no limitations General appearance: Present alert and in no apparent distress Abdominal Exam Abdominal exam: Present soft and normal bowel sounds; Absent distention or tenderness exam: Present normal inspection and other (Indwelling Joseph catheter no evidence of infection, catheter is patent); Absent testicular tenderness or urethral discharge Neurological Exam Neurological exam: Present alert, oriented X3 and CN II-XII intact Psychiatric Psychiatric exam: Present normal affect and normal mood Skin Skin exam: Present warm, dry, intact and normal color Course Quality Measures none Orders Category Date Time Status Joseph [Urinary Catheter, Remove] ONCE Care 04/30/25 19:56 Active Joseph [Urinary Catheter] QS Care 04/30/25 19:56 Active Vital Signs Vital signs: Vital Signs Temperature 97.8 F 04/30/25 19:25 Pulse Rate 68 04/30/25 19:25 Respiratory Rate 20 04/30/25 19:25 Blood Pressure 167/84 H 04/30/25 19:25 Pulse Oximetry (%) 96 04/30/25 19:25 Oxygen Delivery Method Room Air 04/30/25 19:25 Urogenital - Male Patient data External records reviewed:: None Clinical information provided by:: patient Social determinants that could affect healthcare access:: none Patient has the following chronic illnesses:: Urinary obstruction How is presenting disease/condition affected by chronic disease/condition?: caused by Evaluation data The following diagnostics were reviewed and interpreted by me:: other (specify) Lab and/or radiology exams considered but not ordered:: None Interpretation Summary: n/a Medications / Prescriptions Medications or Prescriptions considered but not ordered:: None Medication administrations:: None Consultations Consultation(s) initiated? (list below): No Diagnosis Urogenital Male Differential Diagnosis: other Most likely diagnosis given after review of the tests above:: Encounter for Joseph catheter exchange encounter for Joseph catheter exchange Admission Indicated Admission indicated?: not indicated Admission Request Was there a request for admission?: No Disposition Plan Disposition Plan: Discharge Discharge Attestation Discharge Attestation: The patient and all family members were given an opportunity to ask questions and understood the discharge instructions. Discharge instructions specifically effects, indications for sooner follow up or return to the emergency department, and the expected course of current diagnosis. Patient condition: Stable Discharge Plan Plan Patient Disposition: HOME (Self Care) Prescriptions/Referrals Prescriptions/Med Rec: No Action carvedilol 25 mg tablet 25 mg BID Patient Comments: TAKE ONE TABLET BY MOUTH TWICE DAILY WITH FOOD FOR BLOOD PRESSURE calcitriol 0.25 mcg capsule 0.25 mcg PO MWF Patient Comments: TAKE ONE CAPSULE BY MOUTH EVERY OTHER DAY doxazosin 4 mg tablet 4 mg PO 1XD Patient Comments: TAKE ONE TABLET BY MOUTH EVERY DAY FOR BLOOD PRESSURE bumetanide 1 mg tablet 1 mg PO BID Patient Comments: TAKE ONE TABLET BY MOUTH TWICE DAILY AT EIGHT IN THE MORNING AND 2 p.m in THE afternoon finasteride 5 mg tablet 5 mg PO QDAY Patient Comments: TAKE ONE TABLET BY MOUTH EVERY DAY FOR PROSTATE atorvastatin 40 mg tablet 40 mg PO HS Patient Comments: TAKE ONE TABLET BY MOUTH AT BEDTIME FOR CHOLESTEROL clopidogrel 75 mg tablet 75 mg PO QPM Patient Comments: TAKE ONE TABLET BY MOUTH EVERY EVENING FOR THE HEART oxybutynin chloride 5 mg tablet extended release 24hr 5 mg PO QDAY Patient Comments: TAKE ONE TABLET BY MOUTH EVERY DAY FOR OVERACTIVE BLADDER aspirin 81 mg tablet,delayed release (DR/EC) 81 mg PO QDAY Patient Comments: TAKE ONE TABLET BY MOUTH EVERY DAY FOR THE HEART FOR CIRCULATION pantoprazole 40 mg tablet,delayed release (DR/EC) 40 mg PO QDAY Patient Comments: TAKE ONE TABLET BY MOUTH EVERY DAY HEARTBURN hydrochlorothiazide 25 mg tablet 25 mg PO QAM Patient Comments: TAKE ONE TABLET BY MOUTH EVERY MORNING A DIURETIC losartan 25 mg tablet 25 mg PO QDAY insulin lispro 100 unit/mL Insulin Pen 10 unit SUBCUT QID Rx Instructions: 10-11 units insulin glargine [Lantus Solostar U-100 Insulin] 100 unit/mL (3 mL) Insulin Pen 30 unit SUBCUT HS metformin 500 mg tablet 500 mg PO BIDWMEAL Qty: 30 0RF nifedipine 30 mg tablet extended release 30 mg PO QDAY Qty: 30 0RF Problem List Clinical Impression: Chronic indwelling Joseph catheter, Urinary catheter (Joseph) change required Patient/Caregiver Discharge Instructions Discharge Activity: activity as tolerated Education Materials: ED Joseph Catheter, Care Additional Instructions: Follow with your primary care provider or urologist as needed Print Language: [place] Stand Alone Forms: Nelly Award Info., Patient Portal Info Letter
== END 2025-04-30 20:44 | disposition home or self-care (01) ==
LOC: SERX 20:18
PROVIDERS: Emergency Provider Emergency Medicine
DX: Z46.6 Encounter for fitting and adjustment of urinary device (principal)
CPT/HCPCS: 51702; 99282; A4314